=== PATIENT | male | born 1980 | race Caucasian/White ===

== ENCOUNTER 2020-06-30 11:53 | Emergency (ER) | payer OTHER ==
[~2020-06-30] VITALS: Ht 185.4 cm; Wt 81.7 kg
[~2020-06-30 11:53] MED LIST: AUGMENTIN 500-1 EACH PO; AUGMENTIN 875875 MG; FLEXERIL PO; HYDROCODONE-AP1 EAC6 PO; IBUPROFEN 800800 M1 PO; LIDOCAINE VISC100 M1 SWISH&SPIT; NORCO 5-325 TA1 EAC1 PO; PENICILLIN V P500 MG PO; PERCOCET 5-3251 EACH PO; PERCOCET 7.5-31 EACH PO; TRAMADOL 50 MG50 MG PO
[2020-06-30 12:00] VITALS: BP 102/63
[2020-06-30] MEDS ORDERED: PERCOCET PO (12:25)
[2020-06-30] MEDS ORDERED: IBUPROFEN 800800 M1 PO ×2 (12:25→12:30)
[2020-06-30] MEDS ORDERED: BACTRIM DS TAB1 EACH PO ×2 (12:25→12:30)
[2020-06-30] MEDS ORDERED: KEFLEX250 MG PO ×2 (12:25→12:30)
[2020-06-30] MEDS ORDERED: NORCO5 PO (12:30)
[2020-06-30] MEDS ORDERED: BUPRENORPHINE HC8 MG SUBLING (12:50)
== END 2020-06-30 12:47 | disposition left against medical advice (07) ==
LOC: M.ERS 11:53
DX: L03.115 Cellulitis of right lower limb (principal); R60.0 Localized edema; F17.210 Nicotine dependence, cigarettes, uncomplicated; Z96.661 Presence of right artificial ankle joint

== ENCOUNTER 2020-07-05 11:31 | Emergency (ER) | payer OTHER ==
[~2020-07-05] VITALS: Ht 185.4 cm; Wt 81.7 kg
[~2020-07-05 11:31] MED LIST changes: +BACTRIM DS TAB1 EACH PO; +BUPRENORPHINE HC8 MG SUBLING; +KEFLEX250 MG PO; +NORCO5 PO; +PERCOCET PO
[2020-07-05 12:44] VITALS: BP 134/65
== END 2020-07-05 12:45 | disposition left against medical advice (07) ==
LOC: M.ERS 11:31
DX: T81.40XA Infection following a procedure, unspecified, initial encounter (principal); F17.210 Nicotine dependence, cigarettes, uncomplicated; Y92.89 Other specified places as the place of occurrence of the external cause